=== PATIENT | female | born 1990 | race Asian ===

== ENCOUNTER 2024-03-01 03:17 | Inpatient (IN) ==
[2024-03-01] MEDS ORDERED: LIDOCAINE 1% LOCAL 20 ML VIAL INFIL PRN (04:14)
--- NOTE | 2024-03-01 04:16 | History & Physical Report ---
Date of Service March 01, 2024 Assessment & Plan (1) Supervision of normal first : Plan: Admit to L&D. EFM/toco. Labs. Desires epidural. History of Present Illness Chief Complaint: contractions Primary Care Provider: CARISSA PCP 33yo @ 39 06/15, presented to L&D with bloody show and regular contractions. + movement, no leaking fluid Allergies Allergy/AdvReac Type Severity Reaction Status Date / Time No Known Allergies Allergy Verified 02/28/24 09:08 Home Medications Medication Instructions Recorded Confirmed Type breast pump #1 ea 01/30/24 02/28/24 Rx breast pump #1 ea 01/30/24 02/28/24 Rx vits no.124-ferrous fum 1 tab DAILY 03/01/24 03/01/24 History 27 mg iron-folic acid 800 mcg tablet ( Vitamin) Patient History Medical History (Updated 10/31/23 @ 13:23 by Lynne Valverde) Patient denies significant medical history Surgical History (Updated 10/31/23 @ 13:23 by Lynne Valverde) No history of previous surgery Family History (Updated 10/31/23 @ 13:15 by Lynne Valverde) Grandmother (Maternal) Colorectal cancer Hypertension Mother Hypertension Father Diabetes Rheumatoid arthritis Grandfather (Paternal) Diabetes Denies family history of Ovarian cancer Breast cancer Social History (Updated 10/31/23 @ 13:17 by Lynne Valverde) Smoking Status: Never smoker Do You Dip or Chew Tobacco: No; Hx Alcohol Use: No Hx Substance Use: No Preferred Language: Romanian Communication Ability: Effective 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 Constitutional: WD/WN, vitals as above Respiratory: normal respiratory effort, lungs clear to auscultation no respiratory distress Cardiovascular: Rate/Rhythm: regular rate and regular rhythm Gastrointestinal (Abdomen): Inspection/Auscultation: abdomen normal to inspection Percussion/Palpation: abdomen soft; abdomen nontender Gravid. No s/s chorio or abruption. Skin: no rashes, warm and dry Psychiatric: A+Ox3, euthymic affect Results & Data Vital Signs (Past 12 Hours) Vital Signs Temp Pulse Resp BP 03/01/24 03:35 36.9 C 18 03/01/24 03:35 67 109/60 Coding Level of Care Code None Diagnoses Supervision of normal first Z34.00
[2024-03-01] MEDS: LACTATED RINGER'S 1,000 ML IV SCH (04:30)
[2024-03-01 05:33] LABS: Hematocrit (blood only) 34.5 % (37.0-47.0); Hemoglobin 11.6 g/dl (12.0-16.0); Mean Corpuscular Hemoglobin 32.1 pg (25.0-34.0); Mean Corpuscular Hgb Conc 33.6 g/dL (32.0-36.0); Mean Corpuscular Volume 95.6 fL (80.0-100.0); Platelet Count 174 K/uL (130-400); RDW Coefficient of Variation 13.1 % (11.5-14.5); RDW Standard Deviation 46.1 fL (36.4-46.3); Red Blood Count 3.61 M/uL (4.20-5.40); White Blood Count 16.95 K/ul (4.8-10.8)
[2024-03-01] MEDS ORDERED: SODIUM CHLORIDE 0.9% PF INJ 10 ML VIAL EPI PRN (05:40)
[2024-03-01] MEDS ORDERED: fentaNYL citrate PF 100 MCG/2 ML VIAL EPI PRN (05:40)
[2024-03-01] MEDS ORDERED: NALBUPHINE HCL INJ 10 MG/ML AMP IV PRN (05:40)
[2024-03-01] MEDS ORDERED: NALOXONE HCL 1 MG in SODIUM CHLORIDE 0.9% 1,000 ML IV PRN (05:40)
[2024-03-01] MEDS ORDERED: LIDOCAINE 2% MPF LOCAL 5 ML VIAL EPI PRN (05:40)
[2024-03-01] MEDS ORDERED: ROPIVACAINE 0.5% PF 5 MG/ML 20 ML VIAL EPI PRN (05:40)
[2024-03-01] MEDS ORDERED: ePHEDrine sulfate 50 MG/ML AMP IV PRN (05:40)
[2024-03-01] MEDS ORDERED: NALOXONE HCL 0.4 MG/1 ML VIAL/CARP IV PRN (05:40)
[2024-03-01] MEDS ORDERED: BUPIVACAINE 0.25% PF 30 ML VIAL EPI PRN (05:40)
[2024-03-01] MEDS ORDERED: diphenhydrAMINE 50 MG/ML VIAL IV PRN (05:40)
--- NOTE | 2024-03-01 05:40 | Anesthesiology Consultation ---
Date of Service March 01, 2024 Assessment & Plan (1) Encounter for pre-operative examination: Chart Review Chart Review: Patient NOT seen in Pre Admission Testing and Acceptable Risk for Labor Epidural Consults Requested none History Height/Weight Height: 5 ft 4 in Weight: 69.853 kg Allergies Allergy/AdvReac Type Severity Reaction Status Date / Time No Known Allergies Allergy Verified 02/28/24 09:08 Medications Home Medications Medication Instructions Recorded Confirmed Last Taken breast pump #1 ea 01/30/24 02/28/24 Unknown breast pump #1 ea 01/30/24 02/28/24 Unknown vits no.124-ferrous fum 1 tab DAILY 03/01/24 03/01/24 Unknown 27 mg iron-folic acid 800 mcg tablet ( Vitamin) Past Medical History Medical History Patient denies significant medical history Past Family History Family History Grandmother (Maternal) Colorectal cancer Hypertension Mother Hypertension Father Diabetes Rheumatoid arthritis Grandfather (Paternal) Diabetes Denies family history of Ovarian cancer Breast cancer Past Surgical History Surgical History No history of previous surgery Social History Smoking Status: Never smoker Do You Dip or Chew Tobacco: No Hx Alcohol Use: No Hx Substance Use: No substance use type: does not use Physical Exam Vital Signs Last Vital Signs Temp 98.4 F 03/01/24 03:35 Pulse 49 L 03/01/24 05:37 Resp 18 03/01/24 03:35 BP 109/60 03/01/24 03:35 Pulse Ox 97 03/01/24 05:37 Testing Laboratory Results 03/01/24 04:38
[2024-03-01] MEDS: LIDOCAINE 2%/EPINEPHRINE 1:200,000 20 ML PF EPI STA (06:12)
[2024-03-01] MEDS: BUPIVACAINE 0.25% PF 30 ML VIAL EPI STA (06:12)
[2024-03-01] MEDS: fentANYL 2 MCG/ML BUPIVacaine 0.125%-NSS 100ML BAG EPI PRN (06:12)
[2024-03-01] MEDS: fentaNYL citrate PF 100 MCG/2 ML VIAL ONE (07:08)
[2024-03-01] MEDS: LIDOCAINE 2%/EPINEPHRINE 1:200,000 20 ML PF ONE (07:09)
[2024-03-01] MEDS: SODIUM CHLORIDE 0.9% PF INJ 10 ML VIAL EPI STA (07:09)
[2024-03-01] MEDS: SODIUM CHLORIDE 0.9% PF INJ 10 ML VIAL ONE (07:09)
[2024-03-01] MEDS: BUPIVACAINE 0.25% PF 30 ML VIAL ONE (07:09)
[2024-03-01] MEDS: ePHEDrine sulfate 50 MG/ML AMP ONE (07:09)
[2024-03-01] MEDS: fentaNYL citrate PF 100 MCG/2 ML VIAL EPI STA (07:09)
[2024-03-01] MEDS: fentANYL 2 MCG/ML BUPIVacaine 0.125%-NSS 100ML BAG ONE (07:09)
[2024-03-01] MEDS ORDERED: NURSING L&D Epidural Breakthrough Pain Update ONE (07:09)
--- NOTE | 2024-03-01 07:56 | Labor Progress Brief Note ---
Date of Service March 01, 2024 Subjective Comfortable with epidural. FHT Cat 1 [place] Q 2-4 SVE 9/100/+1 AROM clear fluid. Continue labor. Assessment & Plan Admission and Anticipated Discharge Date Admission Date: March 01, 2024 Results & Data Vital Signs (Past 12 Hours) Vital Signs Temp Pulse Resp BP Pulse Ox 03/01/24 07:52 80 109/57 L 99 03/01/24 07:47 64 99 03/01/24 07:42 68 99 03/01/24 07:39 67 108/64 03/01/24 07:37 65 98 03/01/24 07:32 63 99 03/01/24 07:27 69 100 03/01/24 07:24 75 106/61 03/01/24 07:22 69 99 03/01/24 07:17 73 99 03/01/24 07:12 72 99 03/01/24 07:08 73 94/50 L 03/01/24 07:07 75 99 03/01/24 07:02 80 99 03/01/24 07:00 18 03/01/24 07:00 18 03/01/24 06:57 75 99 03/01/24 06:54 76 103/58 L 03/01/24 06:52 72 100 03/01/24 06:47 73 99 03/01/24 06:42 79 99 03/01/24 06:38 79 108/57 L 03/01/24 06:37 85 100 03/01/24 06:32 88 99 03/01/24 06:27 72 98 03/01/24 06:22 72 98 03/01/24 06:20 77 103/59 L 03/01/24 06:18 72 96/56 L 03/01/24 06:17 80 98 03/01/24 06:16 73 103/58 L 03/01/24 06:14 75 103/56 L 03/01/24 06:12 76 103/56 L 98 03/01/24 06:11 74 96/51 L 03/01/24 06:09 78 109/56 L 03/01/24 06:07 81 98 03/01/24 06:02 81 98 03/01/24 06:01 88 118/56 L 03/01/24 05:57 73 97 03/01/24 05:52 65 98 03/01/24 05:47 67 99 03/01/24 05:42 78 97 03/01/24 05:39 77 93 03/01/24 05:37 49 L 97 03/01/24 03:35 36.9 C 18 03/01/24 03:35 67 109/60 Coding Level of Care Code None
[2024-03-01] MEDS: OXYTOCIN 30 UNITS/NSS 30 UNITS/500 ML BAG IV PRN (13:15)
[2024-03-01] MEDS: METHYLERGONOVINE MALEATE 0.2 MG/ML AMP IM ONE (13:35)
--- NOTE | 2024-03-01 13:49 | Delivery Summary ---
Vaginal Delivery Summary Date of Service March 01, 2024 Vaginal Delivery Summary and 2nd Degree LAC PREOPERATIVE DIAGNOSIS: 1. Single intrauterine at 39 3/7 wga 2. Labor POSTOPERATIVE DIAGNOSIS: 1. Single intrauterine at 39 3/7 wga 2. Labor 3. Delivered PROCEDURE: 1. Normal spontaneous vaginal delivery. SURGEON: Rona Obrien MD ANESTHESIA: Epidural. QUANTITATIVE BLOOD LOSS: 110 mL FLUIDS: Continuous LR. URINE OUTPUT: 200cc by straight cath after delivery COMPLICATIONS: None. CONDITION: Stable. INDICATIONS: 33 yo G1 at 39 3/7 wga presented in labor at 7cm. She received an epidural for pain control and underwent arom. She progressed spontaneously to complete and desired to push FINDINGS: A viable male infant, weight pending with Apgars of 9 and 9 at 1 and 5 minutes respectively. SPECIMEN: Cord blood OPERATIVE REPORT: The patient progressed to 10 cm, 100% effaced and +2 station, pushed over intact perineum with anesthesia to deliver a viable male infant, weight and Apgars as above. Head of delivered in NIDA position. Loose nuchal cord was delivered through. Body and shoulders were delivered without difficulty. was delivered to maternal abdomen and nursing staff. Delayed cord clamping was performed for 60 seconds. Cord was clamped and cut. Cord blood was obtained. Placenta delivered spontaneously intact with 3-vessel cord. IV oxytocin and fundal massage were given however additional atony was noted so methergine was given. Vagina, cervix, perineum, and placenta were inspected. A second degree laceration was repaired using 3-[address]-1. A stellate component to it was repaired in the usual fashion as well. There was excellent hemostasis. Sponge and needle counts correct x2. No sponges were left behind. Mother and stable in immediate period. [facility] [place] Vaginal Delivery Charge Vaginal Delivery Codes: 82948 global code for the antepartum, delivery, and post- Delivery Type Details: and 2nd Degree LAC
[2024-03-01] MEDS ORDERED: ACETAMINOPHEN 325 MG TAB PO PRN (14:06)
[2024-03-01] MEDS ORDERED: OXYTOCIN 30 UNITS/NSS 30 UNITS/500 ML BAG IV PRN (14:06)
[2024-03-01] MEDS ORDERED: bisacodyL 10 MG SUPP PR PRN (14:06)
[2024-03-01] MEDS ORDERED: HYDROCORTISONE ACETATE 25 MG SUPP PR PRN (14:06)
--- NOTE | 2024-03-01 14:36 | Anesthesia Procedure Note ---
Date of Service March 01, 2024 Anesthesia Post Epidural Note Vital Signs Vital Signs: Temp Pulse Resp BP Pulse Ox 36.5 C 64 18 92/55 L 99 03/01/24 11:05 03/01/24 14:32 03/01/24 14:17 03/01/24 14:32 03/01/24 13:07 Pain Intensity Lower Abdomen: Pain Intensity: 0 Notes Mental Status: alert / awake / arousable and participated in evaluation Nausea / Vomiting: adequately controlled Pain: adequately controlled Airway Patency, RR, SpO2: stable & adequate BP & HR: stable & adequate Hydration State: stable & adequate Neuraxial Anesthesia: was administered and sensory block resolved Anesthetic Complications: no major complications apparent and Pt Satisfied with anesthetic care Epidural: Removed without complications and With tip intact
[2024-03-01] MEDS: DIPHTHER/TETAN/PERTUS Vaccine (Tdap, Adol/Adult) 0.5mL IM ONE (14:47)
[2024-03-01] MEDS: METHYLERGONOVINE MALEATE 0.2 MG/ML AMP ONE (14:47)
[2024-03-01] MEDS: IBUPROFEN 600 MG TAB PO PRN (16:39)
[2024-03-01] MEDS: BENZOCAINE 20% SPRY 85 APPLN/85 GM CAN EXT PRN (16:41)
[2024-03-01] MEDS ORDERED: oxyCODONE HCL IR 5 MG TAB (IMMEDIATE RELEASE) PO PRN (18:59)
[2024-03-01] MEDS: DOCUSATE SODIUM 100 MG CAP PO SCH (22:43)
--- NOTE | 2024-03-02 05:46 | Obstetrical Progress Note ---
Date of Service <Keily Pretty MD - Last Filed: 03/02/24 07:02> March 02, 2024 Assessment & Plan <Keily Pretty MD - Last Filed: 03/02/24 07:02> (1) care and examination: Plan PPD#1 s/p term : Stable. Rh+, gbs -, ri Continue routine care, diet as tolerated Continue OOB and ambulation; PT has been consulted; continue motrin; consider heat, ice, abd binder Plan for DC once ambulating normally <Rona Obrien MD - Last Filed: 03/02/24 07:35> (1) care and examination: Subjective <Keily Pretty MD - Last Filed: 03/02/24 07:02> 33 y/o who is PPD#1 following at term. Having mild abd pain/cramping, well managed on analgesics. Pain mostly in L groin Some difficulty ambulating, pain when lifting leg/bending hip, possibly pinched femoral nerve during labor. +numbness, tingling. Has been shuffling around room/to bathroom, some improvement since yesterday Is voiding and tolerating meals Planning for but having trouble; baby has been spitting up, might try bottle Constitutional: no fever, no chills or no sweats Respiratory: no dyspnea Cardiovascular: no chest pain, no palpitations or no calf pain Breast: no breast pain Gastrointestinal: no nausea or no vomiting Genitourinary (female): no dysuria Neurologic: no headache(s) no changes in vision, no headaches Physical Exam <Keily Pretty MD - Last Filed: 03/02/24 07:02> General: Alert, oriented. No acute distress. Cardiac: Regular rate and rhythm, no murmurs, rubs, or gallops. Respiratory: Clear to auscultation bilaterally. No increased work of breathing. Symmetrical chest rise. No respiratory distress. Abdomen: Soft, nontender, nondistended. Bowel sounds present. Uterus: Uterine fundus firm, nontender, palpable 1 cm below the umbilicus. Extremities: +pain w hip flexion. No ttp in groin where pain indicated. Sensation intact. No LE edema or swelling. No deep calf pain. Results & Data <Keily Pretty MD - Last Filed: 03/02/24 07:02> Vital Signs (Past 12 Hours) Vital Signs Temp Pulse Resp BP Pulse Ox O2 Del Method 03/02/24 03:29 36.6 C 66 16 94/54 L 98 Room Air 03/01/24 22:52 36.4 C L 69 16 94/55 L 99 Room Air 03/01/24 19:07 36.8 C 73 18 101/64 98 Room Air Supervising Physician <Rona Obrien MD - Last Filed: 03/02/24 07:35> Co-Signing Physician Notes Resident Physician Supervision Note: I interviewed and examined the patient. Discussed with Dr. Pretty and agree with findings and plan as documented in the note. Any exceptions or clarifications are listed here: PP1 s/p . Made aware of some numbness over ant left thigh and weakness/pain at the groin/hip last night. Is able to move below the knee but difficulty with quad movement. Numbness has improved, still some weakness and pain - using walker. PT ordered, continue ibuprofen/tylenol, abd binder Documented By: Rona Obrien MD Resident Activity Tracking <Keily Pretty MD - Last Filed: 03/02/24 07:02> Resident Involvement: Resident Care Provided Care Provided: Adult Hospital Medicine and OB Delivery
[2024-03-02] MEDS: FERROUS SULFATE 325 MG TAB PO SCH (07:54)
[2024-03-02] MEDS: PRENATAL VITAMIN 1 TAB PO SCH (07:54)
[2024-03-02] MEDS: bisacodyL 5 MG TABEC PO SCH (20:33)
[2024-03-02 23:54] VITALS: PULSE 76
--- NOTE | 2024-03-03 06:14 | Obstetrical Progress Note ---
Date of Service <Keily Pretty MD - Last Filed: 03/03/24 07:26> March 03, 2024 Assessment & Plan <Keily Pretty MD - Last Filed: 03/03/24 07:26> (1) care and examination: Plan PPD#2 s/p term : Stable. Rh+, gbs -, ri Continue routine care, diet as tolerated Saw PT, ambulation improved, recc home w walker & abd binder DC later today. F/u in 1 wk for pain/ambulation <Randee Lobo MD, FACOG - Last Filed: 03/03/24 07:39> (1) care and examination: Subjective <Keily Pretty MD - Last Filed: 03/03/24 07:26> 33 y/o who is PPD#2 following at term. Having mild abd pain/cramping, mainly when , well managed on analgesics. Pain in L groin & ability to ambulate improved. Regained sensation. Seen by PT. Full mobility with minimum supervision. Safe to return home Is voiding and tolerating meals Both bottle & Would like to go home after lunch Constitutional: no fever, no chills or no sweats Respiratory: no dyspnea Cardiovascular: no chest pain, no palpitations or no calf pain Breast: no breast pain Gastrointestinal: no nausea or no vomiting Genitourinary (female): no dysuria Neurologic: no headache(s) Physical Exam <Keily Pretty MD - Last Filed: 03/03/24 07:26> General: Alert, oriented. No acute distress. Cardiac: Regular rate and rhythm, no murmurs, rubs, or gallops. Respiratory: Clear to auscultation bilaterally. No increased work of breathing. Symmetrical chest rise. No respiratory distress. Abdomen: Soft, nontender, nondistended. Bowel sounds present. Uterus: Uterine fundus firm, nontender, palpable 1 cm below the umbilicus. Extremities: Mild pain w hip flexion. No ttp in groin. Sensation intact. No LE edema or swelling. No deep calf pain. Results & Data <Keily Pretty MD - Last Filed: 03/03/24 07:26> Vital Signs (Past 12 Hours) Vital Signs Temp Pulse Resp BP Pulse Ox O2 Del Method 03/02/24 23:10 36.5 C 76 18 95/58 L 99 Room Air 03/02/24 20:20 37.2 C 84 18 89/50 L 98 Room Air Supervising Physician <Randee Lobo MD, FACOG - Last Filed: 03/03/24 07:39> Co-Signing Physician Notes Resident Physician Supervision Note: I interviewed and examined the patient. Discussed with Dr. Pretty and agree with findings and plan as documented in the note. Any exceptions or clarifications are listed here: Patient improved mobility today. Has full return of sensation. Saw PT had evaluation, needs very minimal assistance and ok for d/c. Instru ctions reviewed. Plan f/u in office in one week for reevaluation. Anticipate full recovery. Documented By: Randee Lobo MD, FACOG Resident Activity Tracking <Keily Pretty MD - Last Filed: 03/03/24 07:26> Resident Involvement: Resident Care Provided Care Provided: Adult Hospital Medicine and OB Delivery
[2024-03-03 07:50] VITALS: BP 96/60; RESP 16; TEMP 97.2; O2SAT 98
== END 2024-03-03 14:03 | disposition home or self-care (01) | DRG 807 ==
LOC: OPB 03:17 → 4S1 03:21 → 4E2 16:30